=== PATIENT | female | born 1935 | race Caucasian/White ===

== ENCOUNTER 2021-02-23 23:35 | Inpatient (IN) | payer MEDICARE, MEDICAID ==
[~2021-02-23] VITALS: Ht 162.6 cm; Wt 55.0 kg
[~2021-02-23 23:35] MED LIST: LOSA25TA96 PO; metoprolol PO
[2021-02-24 00:36] LABS: BASOPHILS % (AUTO) 0.6 % (0-1); EOSINOPHILS % (AUTO) 0.6 % (0-6); HEMATOCRIT 40.3 % (35.0-45.0); HEMOGLOBIN 14.2 g/dl (12.0-16.0); LYMPHOCYTES # (AUTO) 1.3 X10'3 (1.1-4.8); MEAN CORPUSCULAR HEMOGLOBIN 32.3 PG (27.0-31.0); MEAN CORPUSCULAR HGB CONC 35.2 g/dL (33.0-36.5); MEAN CORPUSCULAR VOLUME 91.9 FL (78-98); MEAN PLATELET VOLUME 7.7 FL (7.4-10.4); MONOCYTES # (AUTO) 0.3 X10'3 (0-0.9); MONOCYTES % (AUTO) 4.8 % (2-12); NEUTROPHILS # (AUTO) 5.3 X10'3 (1.8-7.7); PLATELET COUNT 200 X10'3 (140-440); RED BLOOD COUNT 4.39 X10'6 (4.20-5.60); RED CELL DISTRIBUTION WIDTH 13.2 % (11.5-14.5); WHITE BLOOD COUNT 7.1 X10'3 (4.5-11.0)
[2021-02-24 00:47] LABS: ALANINE AMINOTRANSFERASE 17 U/L (12-78); ALBUMIN 3.5 G/DL (3.4-5.0); ALKALINE PHOSPHATASE 111 IU/L (46-116); ANION GAP 8 (8-16); ASPARTATE AMINO TRANSFERASE 15 U/L (10-37); BILIRUBIN,TOTAL 0.4 MG/DL (0.1-1.0); BLOOD UREA NITROGEN 17 MG/DL (7-18); CALCIUM 9.1 MG/DL (8.5-10.1); CHLORIDE 107 MMOL/L (99-107); GLUCOSE 123 MG/DL (70-104); POTASSIUM 3.8 MMOL/L (3.5-5.1); SODIUM 144 MMOL/L (135-145); TOTAL CARBON DIOXIDE 29.5 MMOL/L (24-32); TOTAL PROTEIN 6.9 G/DL (6.4-8.2); eGFR 53 ML/MIN
[2021-02-24 00:51] LABS: BILIRUBIN,DIRECT 0.1 MG/DL (0-0.3); LIPASE 116 U/L (73-393); TROPONIN I < 0.04 NG/ML (0.0-0.05)
[2021-02-24 02:03] LABS: CLARITY,URINE CLOUDY (Clear); COLOR,URINE YELLOW (Yellow); GLUCOSE, URINE NEGATIVE (Neg); KETONES,URINE NEGATIVE (Neg); LEUKOCYTE ESTERASE ,URINE LARGE (Neg); NITRITES, URINE POSITIVE (Neg); OCCULT BLOOD,URINE TRACE-LYSED (Neg); PROTEIN,URINE NEGATIVE (Neg); UA COLLECTION TYPE STRAIGHT CATH; UROBILINOGEN,URINE 0.2 E.U/dL (0.2-1.0)
[2021-02-24 02:25] LABS: BACTERIA,URINE 4+ /HPF (Neg); SQUAMOUS EPITHELIAL CELL,UR FEW /LPF (FEW); WBC CLUMPS,URINE MODERATE /HPF (NEGATIVE); WBC,URINE TNTC /HPF (0-4)
[2021-02-24] MEDS ORDERED: CefTRIAXone/D5W-Rocephin 1gm 50 ML IV ONE (03:05)
[2021-02-24] MEDS ORDERED: ondansetron/PF 4mg/2ml inj IV PRN (03:10)
[2021-02-24] MEDS ORDERED: magnesium hydroxide 30ml (MOM) UD suspension PO PRN (03:10)
[2021-02-24] MEDS ORDERED: acetaminophen 325mg tablet PO PRN (03:10)
[2021-02-24] MEDS ORDERED: mag hydrox/Alum hydrox/simeth 30ml oral suspension PO PRN (03:10)
[2021-02-24] MEDS ORDERED: MEMA5TAB42 PO (04:03)
[2021-02-24] MEDS ORDERED: QUET50TA24 PO (04:04)
[2021-02-24] MEDS ORDERED: METO25TA6 PO (04:04)
[2021-02-24] MEDS ORDERED: SULF1TAB45 PO (04:05)
[2021-02-24] MEDS ORDERED: metoprolol succinate 25mg (24-HOUR) SR. Tablet PO SCH (08:00)
[2021-02-24] MEDS: heparin, porcine 5000 units/ml vial SQ SCH ×2 (10:33→20:10)
[2021-02-24] MEDS: docusate sod 100mg capsule PO SCH ×2 (10:33→20:09)
--- NOTE | 2021-02-24 17:02 | NUR ---
Pt. placed back in bed after fall. Bed alarm cord shortened to allow earlier alarm if pt. attempts to climb out of bed again.
[2021-02-24] MEDS: memantine 5mg tablet PO SCH (20:09)
[2021-02-24] MEDS: QUEtiapine 25mg tablet PO SCH (20:09)
--- NOTE | 2021-02-24 20:20 | NUR ---
CHANGED PT BRIEF, SOILED W URINE, PT IN POSITION OF COMFORT, SITTER AT BEDSIDE. NO NEEDS AT THIS TIME
[2021-02-25 01:40] LABS: BASOPHILS % (AUTO) 0.6 % (0-1); EOSINOPHILS # (AUTO) 0.1 X10'3 (0-0.9); EOSINOPHILS % (AUTO) 0.8 % (0-6); HEMOGLOBIN 13.9 g/dl (12.0-16.0); LYMPHOCYTES # (AUTO) 2.1 X10'3 (1.1-4.8); LYMPHOCYTES % (AUTO) 30.9 % (21-51); MEAN CORPUSCULAR HGB CONC 34.8 g/dL (33.0-36.5); MEAN CORPUSCULAR VOLUME 92.1 FL (78-98); MEAN PLATELET VOLUME 7.8 FL (7.4-10.4); MONOCYTES # (AUTO) 0.4 X10'3 (0-0.9); MONOCYTES % (AUTO) 6.3 % (2-12); NEUTROPHILS # (AUTO) 4.1 X10'3 (1.8-7.7); NEUTROPHILS % (AUTO) 61.4 % (42-75); PLATELET COUNT 201 X10'3 (140-440); RED BLOOD COUNT 4.34 X10'6 (4.20-5.60); WHITE BLOOD COUNT 6.7 X10'3 (4.5-11.0)
[2021-02-25 01:56] LABS: ALANINE AMINOTRANSFERASE 19 U/L (12-78); ALBUMIN 3.4 G/DL (3.4-5.0); ALKALINE PHOSPHATASE 106 IU/L (46-116); ANION GAP 5 (8-16); ASPARTATE AMINO TRANSFERASE 21 U/L (10-37); BILIRUBIN,TOTAL 0.6 MG/DL (0.1-1.0); BLOOD UREA NITROGEN 15 MG/DL (7-18); BUN/CREATININE RATIO 14.2 (6.6-38.0); CALCIUM 8.9 MG/DL (8.5-10.1); CHLORIDE 107 MMOL/L (99-107); CREATININE 1.06 MG/DL (0.40-0.90); GLUCOSE 107 MG/DL (70-104); POTASSIUM 3.5 MMOL/L (3.5-5.1); SODIUM 142 MMOL/L (135-145); TOTAL CARBON DIOXIDE 30.3 MMOL/L (24-32); TOTAL PROTEIN 6.8 G/DL (6.4-8.2); eGFR 49 ML/MIN
[2021-02-25] MEDS ORDERED: CefTRIAXone/D5W-Rocephin 1gm 50 ML IV SCH (08:00)
[2021-02-25] MEDS ORDERED: metoprolol tartrate 25mg tablet PO SCH (08:00)
--- NOTE | 2021-02-25 09:49 | NUR ---
BEATA [phone]
[2021-02-25] MEDS ORDERED: CEFD300C3 PO (09:53)
--- NOTE | 2021-02-25 09:53 | NUR ---
CALL FROM DR DELGADO STATING HE IS GOING TO DC PT. CALLED PTS MSG LEFT
[2021-02-25] MEDS: memantine 5mg tablet PO SCH (10:39)
[2021-02-25] MEDS: docusate sod 100mg capsule PO SCH (10:40)
[2021-02-25] MEDS: QUEtiapine 25mg tablet PO SCH (10:40)
[2021-02-25] MEDS: heparin, porcine 5000 units/ml vial SQ SCH (10:41)
[2021-02-25 10:42] VITALS: BP 159/82
--- NOTE | 2021-02-25 11:02 | NUR ---
DR DELGADO IN TO SEE PT. PT READY FOR DC. AM MEDS GIVEN, BRIEF CHANGED LARGE AMT URINE. PT TO WELL. BED ALARM ON.
--- NOTE | 2021-02-25 11:09 | NUR ---
attempted to call pts again. no answer msg left
--- NOTE | 2021-02-25 11:12 | NUR ---
CALLED BACK INFORMED HIM PT WILL BE READY FOR DC IN ABOUT 30 MIN. STATES HE WILL BE HERE AROUND 1200
--- NOTE | 2021-02-25 12:37 | NUR ---
ASSISTED GETTING PT TO A WC AND OUT TO THE CAR. PT WAS MOD ASSIST TO WC FROM BED. ONCE OUT TO THE CAR PT FULL ASSIST INTO CAR. PT BECAME WT WHILE IN THE PROCESS OF TRANSFER. ABLE TO GET PT IN CAR. ASKED IF THIS IS HER BASELINE HE STATES SHE DOES THIS SOMETIMES. HE STATES HE FEELS SHE WILL BE ABLE TO ASSIST HIM TO GET HER OUT OF THE CAR WHEN THEY GET HOME. HE STATES SHE IS MORE RECEPTIVE TO HIM AND HE WILL BE ABLE TO TALK WITH HER ON THE WAY HOME. STATES HE CAN GET HELP FROM THE NEIGHBORS IF HE NEEDS IT. INFORMED HIM IF HE HAS ANY PROBLEMS TO RETURN BACK HERE. HE STATES UNDERSTANDING
[2021-02-25] MEDS ORDERED: lactobacillus rhamnosus 10,000 MMU CELLS/CAPSULE PO SCH (20:00)
== END 2021-02-25 12:40 | disposition home health service (06) | DRG 689 ==
LOC: ER 23:36 → UNDOADMIN 02-24 03:09 → ED HOLD 02-24 03:09 → UNDOADMIN 02-24 03:11 → ED HOLD 02-24 03:11 → UNDODISIN 02-26 17:03
PROVIDERS: ADMIT Internal Medicine; ATTEND Family Medicine
DX: N30.01 Acute cystitis with hematuria (principal); G93.41 Metabolic encephalopathy; I10 Essential (primary) hypertension; W18.39XA Other fall on same level, initial encounter; Z96.653 Presence of artificial knee joint, bilateral; G30.9 Alzheimer's disease, unspecified; F02.80 Dementia in other diseases classified elsewhere, unspecified severity, without behavioral disturbance, psychotic disturbance, mood disturbance, and anxiety; Z86.73 Personal history of transient ischemic attack (TIA), and cerebral infarction without residual deficits; Z90.49 Acquired absence of other specified parts of digestive tract; Z90.710 Acquired absence of both cervix and uterus; Y93.89 Activity, other specified; Z79.899 Other long term (current) drug therapy; Y92.098 Other place in other non-institutional residence as the place of occurrence of the external cause; Y99.8 Other external cause status
CPT/HCPCS: 36415; 70450; 71045; 72125; 80048; 80053; 80076; 81001; 83605; 83690; 84484; 85025; 87040; 99285; G0378; J0696; J1644

== ENCOUNTER 2021-02-25 17:57 | Inpatient (IN) | payer MEDICARE, MEDICAID ==
[~2021-02-25] VITALS: Ht 162.6 cm; Wt 55.0 kg
[~2021-02-25 17:57] MED LIST changes: +CEFD300C3 PO; +MEMA5TAB42 PO; +METO25TA6 PO; +QUET50TA24 PO; +SULF1TAB45 PO
[2021-02-25] MEDS ORDERED: CefTRIAXone/D5W-Rocephin 1gm 50 ML IV ONE (20:50)
[2021-02-25 20:54] LABS: BASOPHILS % (AUTO) 0.7 % (0-1); EOSINOPHILS % (AUTO) 0.5 % (0-6); HEMATOCRIT 38.1 % (35.0-45.0); HEMOGLOBIN 13.2 g/dl (12.0-16.0); LYMPHOCYTES # (AUTO) 1.3 X10'3 (1.1-4.8); MEAN CORPUSCULAR HEMOGLOBIN 32.1 PG (27.0-31.0); MEAN CORPUSCULAR HGB CONC 34.8 g/dL (33.0-36.5); MEAN CORPUSCULAR VOLUME 92.2 FL (78-98); MEAN PLATELET VOLUME 8.7 FL (7.4-10.4); MONOCYTES # (AUTO) 0.3 X10'3 (0-0.9); MONOCYTES % (AUTO) 5.3 % (2-12); NEUTROPHILS # (AUTO) 4.4 X10'3 (1.8-7.7); NEUTROPHILS % (AUTO) 71.5 % (42-75); PLATELET COUNT 212 X10'3 (140-440); RED BLOOD COUNT 4.13 X10'6 (4.20-5.60); WHITE BLOOD COUNT 6.1 X10'3 (4.5-11.0)
[2021-02-25 21:04] LABS: ALANINE AMINOTRANSFERASE 19 U/L (12-78); ALBUMIN 3.4 G/DL (3.4-5.0); ALKALINE PHOSPHATASE 104 IU/L (46-116); ANION GAP 9 (8-16); ASPARTATE AMINO TRANSFERASE 19 U/L (10-37); BILIRUBIN,TOTAL 0.7 MG/DL (0.1-1.0); BLOOD UREA NITROGEN 17 MG/DL (7-18); BUN/CREATININE RATIO 13.7 (6.6-38.0); CALCIUM 8.5 MG/DL (8.5-10.1); CHLORIDE 103 MMOL/L (99-107); CREATININE 1.24 MG/DL (0.40-0.90); GLUCOSE 117 MG/DL (70-104); POTASSIUM 3.8 MMOL/L (3.5-5.1); SODIUM 137 MMOL/L (135-145); TOTAL CARBON DIOXIDE 25.2 MMOL/L (24-32); TOTAL PROTEIN 6.7 G/DL (6.4-8.2); eGFR 41 ML/MIN
[2021-02-25] MEDS ORDERED: mag hydrox/Alum hydrox/simeth 30ml oral suspension PO PRN (21:20)
[2021-02-25] MEDS ORDERED: ondansetron/PF 4mg/2ml inj IV PRN (21:20)
[2021-02-25] MEDS ORDERED: magnesium hydroxide 30ml (MOM) UD suspension PO PRN (21:20)
[2021-02-25] MEDS ORDERED: acetaminophen 325mg tablet PO PRN (21:20)
[2021-02-25] MEDS: prazosin 1mg capsule PO SCH (21:36)
--- NOTE | 2021-02-25 23:25 | NUR ---
PT INCONTINENT OF URINE, CHANGED AND REPOSITION, TOLERATED WELL
[2021-02-26 04:23] LABS: ALANINE AMINOTRANSFERASE 19 U/L (12-78); ALBUMIN 3.3 G/DL (3.4-5.0); ALBUMIN/GLOBULIN RATIO 0.9 (1.1-1.5); ALKALINE PHOSPHATASE 102 IU/L (46-116); ANION GAP 8 (8-16); ASPARTATE AMINO TRANSFERASE 29 U/L (10-37); BILIRUBIN,TOTAL 0.7 MG/DL (0.1-1.0); BLOOD UREA NITROGEN 18 MG/DL (7-18); BUN/CREATININE RATIO 15.3 (6.6-38.0); CALCIUM 8.7 MG/DL (8.5-10.1); CHLORIDE 108 MMOL/L (99-107); CREATININE 1.18 MG/DL (0.40-0.90); GLUCOSE 91 MG/DL (70-104); POTASSIUM 3.9 MMOL/L (3.5-5.1); SODIUM 144 MMOL/L (135-145); TOTAL CARBON DIOXIDE 27.9 MMOL/L (24-32); TOTAL PROTEIN 6.9 G/DL (6.4-8.2); eGFR 43 ML/MIN
[2021-02-26 04:31] LABS: BASOPHILS % (AUTO) 0.5 % (0-1); EOSINOPHILS # (AUTO) 0.1 X10'3 (0-0.9); EOSINOPHILS % (AUTO) 1.1 % (0-6); HEMATOCRIT 41.9 % (35.0-45.0); LYMPHOCYTES # (AUTO) 2.3 X10'3 (1.1-4.8); LYMPHOCYTES % (AUTO) 39.6 % (21-51); MEAN CORPUSCULAR HEMOGLOBIN 31.5 PG (27.0-31.0); MEAN CORPUSCULAR HGB CONC 33.5 g/dL (33.0-36.5); MEAN CORPUSCULAR VOLUME 94.2 FL (78-98); MEAN PLATELET VOLUME 8.2 FL (7.4-10.4); MONOCYTES # (AUTO) 0.5 X10'3 (0-0.9); MONOCYTES % (AUTO) 8.7 % (2-12); NEUTROPHILS # (AUTO) 2.9 X10'3 (1.8-7.7); NEUTROPHILS % (AUTO) 50.1 % (42-75); PLATELET COUNT 188 X10'3 (140-440); RED BLOOD COUNT 4.45 X10'6 (4.20-5.60); RED CELL DISTRIBUTION WIDTH 13.5 % (11.5-14.5); WHITE BLOOD COUNT 5.8 X10'3 (4.5-11.0)
[2021-02-26] MEDS ORDERED: QUEtiapine 25mg tablet PO SCH (08:00)
[2021-02-26] MEDS ORDERED: metoprolol tartrate 25mg tablet PO SCH (08:00)
[2021-02-26] MEDS ORDERED: docusate sod 100mg capsule PO SCH (08:00)
[2021-02-26] MEDS ORDERED: memantine 5mg tablet PO SCH (08:00)
[2021-02-26] MEDS ORDERED: heparin, porcine 5000 units/ml vial SQ SCH (08:00)
[2021-02-26] MEDS ORDERED: cefpodoxime proxetil 100mg tablet PO SCH (08:30)
--- NOTE | 2021-02-26 09:50 | NUR ---
Spoke to pt's /POA. States that he is able to care for pt at home and would like her to return there. States that hew is currently working with [facility] to have caregiver's come to home for addtional help.
[2021-02-26] MEDS: prazosin 1mg capsule PO SCH (09:57)
--- NOTE | 2021-02-26 10:42 | NUR ---
Spoke to Case Management. They will contact [employer] to followup regarding possible [facility].
--- NOTE | 2021-02-26 11:32 | NUR ---
Per hospitalist, SS consulted and will be following up with [facility].
[2021-02-26 14:12] VITALS: BP 98/72
[2021-02-26] MEDS ORDERED: lactobacillus rhamnosus 10,000 MMU CELLS/CAPSULE PO SCH (20:00)
== END 2021-02-26 17:04 | disposition home health service (06) | DRG 71 ==
LOC: ER 17:58 → ED HOLD 21:29
PROVIDERS: ADMIT Internal Medicine; ATTEND Internal Medicine
DX: G93.41 Metabolic encephalopathy (principal); N39.0 Urinary tract infection, site not specified; F03.90 Unspecified dementia, unspecified severity, without behavioral disturbance, psychotic disturbance, mood disturbance, and anxiety; I10 Essential (primary) hypertension; Z86.73 Personal history of transient ischemic attack (TIA), and cerebral infarction without residual deficits; Z90.49 Acquired absence of other specified parts of digestive tract; Z90.710 Acquired absence of both cervix and uterus; Z79.899 Other long term (current) drug therapy
CPT/HCPCS: 36415; 80053; 83605; 85025; 87081; 96374; 99285; G0378; J0696; J1644

== ENCOUNTER 2021-04-15 23:36 | Emergency (ER) | payer MEDICARE, MEDICAID ==
[~2021-04-15] VITALS: Ht 160 cm; Wt 54.5 kg
[~2021-04-15 23:36] MED LIST changes: -CEFD300C3 PO; -LOSA25TA96 PO; -SULF1TAB45 PO; -metoprolol PO
[2021-04-15 23:42] VITALS: BP 168/84
[2021-04-16 00:35] LABS: BASOPHILS % (AUTO) 0.3 % (0-1); EOSINOPHILS % (AUTO) 0.6 % (0-6); HEMATOCRIT 40.8 % (35.0-45.0); HEMOGLOBIN 14.4 g/dl (12.0-16.0); LYMPHOCYTES # (AUTO) 1.6 X10'3 (1.1-4.8); LYMPHOCYTES % (AUTO) 22.6 % (21-51); MEAN CORPUSCULAR HEMOGLOBIN 31.9 PG (27.0-31.0); MEAN CORPUSCULAR HGB CONC 35.2 g/dL (33.0-36.5); MEAN CORPUSCULAR VOLUME 90.8 FL (78-98); MEAN PLATELET VOLUME 7.7 FL (7.4-10.4); MONOCYTES # (AUTO) 0.5 X10'3 (0-0.9); MONOCYTES % (AUTO) 6.7 % (2-12); NEUTROPHILS # (AUTO) 5.1 X10'3 (1.8-7.7); NEUTROPHILS % (AUTO) 69.8 % (42-75); PLATELET COUNT 223 X10'3 (140-440); RED BLOOD COUNT 4.49 X10'6 (4.20-5.60); RED CELL DISTRIBUTION WIDTH 13.2 % (11.5-14.5); WHITE BLOOD COUNT 7.2 X10'3 (4.5-11.0)
[2021-04-16 00:41] LABS: ALBUMIN 3.8 G/DL (3.4-5.0); ANION GAP 10 (8-16); BLOOD UREA NITROGEN 14 MG/DL (7-18); BUN/CREATININE RATIO 14.9 (6.6-38.0); CALCIUM 9.1 MG/DL (8.5-10.1); CHLORIDE 107 MMOL/L (99-107); CREATININE 0.94 MG/DL (0.40-0.90); GLUCOSE 125 MG/DL (70-104); POTASSIUM 3.7 MMOL/L (3.5-5.1); SODIUM 145 MMOL/L (135-145); TOTAL CARBON DIOXIDE 27.7 MMOL/L (24-32); eGFR 56 ML/MIN
[2021-04-16 01:15] LABS: COLOR,URINE YELLOW (Yellow); UA COLLECTION TYPE FOLEY CATH
[2021-04-16 01:16] LABS: CLARITY,URINE SLIGHTLY CLOUDY (Clear); GLUCOSE, URINE NEGATIVE (Neg); KETONES,URINE 15 mg/dl (Neg); NITRITES, URINE POSITIVE (Neg); OCCULT BLOOD,URINE SMALL (Neg); PROTEIN,URINE TRACE mg/dl (Neg); UROBILINOGEN,URINE 0.2 E.U/dL (0.2-1.0)
[2021-04-16 01:17] LABS: LEUKOCYTE ESTERASE ,URINE MODERATE (Neg)
[2021-04-16 01:19] LABS: BACTERIA,URINE 4+ /HPF (Neg); SQUAMOUS EPITHELIAL CELL,UR FEW /LPF (FEW); WBC,URINE 50-100 /HPF (0-4)
[2021-04-16 01:20] LABS: MUCUS STRANDS FEW /LPF (Neg); WBC CLUMPS,URINE FEW /HPF (NEGATIVE)
[2021-04-16] MEDS ORDERED: CEFD300C3 PO ×2 (01:30)
[2021-04-30] MEDS ORDERED: TEMA15CA5 PO (13:02)
[2021-04-30] MEDS ORDERED: QUET25TA36 PO ×2 (13:02→13:22)
[2021-04-30] MEDS ORDERED: LOSA50TA64 PO (13:02)
== END 2021-04-16 03:14 | disposition home or self-care (01) ==
LOC: ER 23:38
DX: S09.90XA Unspecified injury of head, initial encounter (principal); N39.0 Urinary tract infection, site not specified; F03.90 Unspecified dementia, unspecified severity, without behavioral disturbance, psychotic disturbance, mood disturbance, and anxiety; I10 Essential (primary) hypertension; Z86.73 Personal history of transient ischemic attack (TIA), and cerebral infarction without residual deficits; Z90.89 Acquired absence of other organs; Z90.49 Acquired absence of other specified parts of digestive tract; Z90.710 Acquired absence of both cervix and uterus; Z98.890 Other specified postprocedural states; Z79.2 Long term (current) use of antibiotics; W19.XXXA Unspecified fall, initial encounter; Y93.89 Activity, other specified; Y92.89 Other specified places as the place of occurrence of the external cause; Y99.8 Other external cause status
CPT/HCPCS: 36415; 70450; 72125; 80048; 81001; 85025; 87077; 87088; 87186; 93005; 99285

== ENCOUNTER 2021-04-17 16:49 | Emergency (ER) | payer MEDICARE, MEDICAID ==
[~2021-04-17] VITALS: Ht 160 cm; Wt 54.5 kg
[~2021-04-17 16:49] MED LIST changes: +CEFD300C3 PO
[2021-04-17 17:38] LABS: BASOPHILS # (AUTO) 0.1 X10'3 (0-0.2); BASOPHILS % (AUTO) 0.9 % (0-1); EOSINOPHILS # (AUTO) 0.1 X10'3 (0-0.9); EOSINOPHILS % (AUTO) 0.9 % (0-6); HEMOGLOBIN 14.4 g/dl (12.0-16.0); LYMPHOCYTES % (AUTO) 30.1 % (21-51); MEAN CORPUSCULAR HEMOGLOBIN 31.9 PG (27.0-31.0); MEAN CORPUSCULAR HGB CONC 35.1 g/dL (33.0-36.5); MEAN PLATELET VOLUME 7.7 FL (7.4-10.4); MONOCYTES # (AUTO) 0.5 X10'3 (0-0.9); MONOCYTES % (AUTO) 7.7 % (2-12); NEUTROPHILS # (AUTO) 3.9 X10'3 (1.8-7.7); NEUTROPHILS % (AUTO) 60.4 % (42-75); PLATELET COUNT 237 X10'3 (140-440); RED BLOOD COUNT 4.51 X10'6 (4.20-5.60); RED CELL DISTRIBUTION WIDTH 13.6 % (11.5-14.5); WHITE BLOOD COUNT 6.5 X10'3 (4.5-11.0)
[2021-04-17 17:47] LABS: ALANINE AMINOTRANSFERASE 21 U/L (12-78); ALBUMIN 3.6 G/DL (3.4-5.0); ALBUMIN/GLOBULIN RATIO 1.1 (1.1-1.5); ALKALINE PHOSPHATASE 100 IU/L (46-116); ANION GAP 8 (8-16); ASPARTATE AMINO TRANSFERASE 17 U/L (10-37); BILIRUBIN,TOTAL 1.1 MG/DL (0.1-1.0); BLOOD UREA NITROGEN 14 MG/DL (7-18); BUN/CREATININE RATIO 14.6 (6.6-38.0); CALCIUM 8.8 MG/DL (8.5-10.1); CHLORIDE 108 MMOL/L (99-107); CREATININE 0.96 MG/DL (0.40-0.90); GLUCOSE 122 MG/DL (70-104); POTASSIUM 4.2 MMOL/L (3.5-5.1); SODIUM 146 MMOL/L (135-145); TOTAL CARBON DIOXIDE 29.6 MMOL/L (24-32); eGFR 55 ML/MIN
[2021-04-17 18:10] VITALS: BP 134/87
[2021-04-17 18:39] LABS: CLARITY,URINE CLOUDY (Clear); COLOR,URINE YELLOW (Yellow); GLUCOSE, URINE NEGATIVE (Neg); KETONES,URINE TRACE mg/dl (Neg); PH,URINE 5.5 (4.8-8.0); PROTEIN,URINE 30 mg/dl (Neg); UA COLLECTION TYPE STRAIGHT CATH
[2021-04-17 18:40] LABS: LEUKOCYTE ESTERASE ,URINE MODERATE (Neg); NITRITES, URINE POSITIVE (Neg); OCCULT BLOOD,URINE MODERATE (Neg); UROBILINOGEN,URINE 0.2 E.U/dL (0.2-1.0)
[2021-04-17 19:03] LABS: BACTERIA,URINE 3+ /HPF (Neg); MUCUS STRANDS FEW /LPF (Neg); SQUAMOUS EPITHELIAL CELL,UR FEW /LPF (FEW); WBC,URINE TNTC /HPF (0-4)
== END 2021-04-17 19:41 | disposition home or self-care (01) ==
LOC: ER 16:49
DX: M25.512 Pain in left shoulder (principal); N39.0 Urinary tract infection, site not specified; F03.91 Unspecified dementia, unspecified severity, with behavioral disturbance; I10 Essential (primary) hypertension; Z86.73 Personal history of transient ischemic attack (TIA), and cerebral infarction without residual deficits; Z90.49 Acquired absence of other specified parts of digestive tract; Z98.890 Other specified postprocedural states; Z90.710 Acquired absence of both cervix and uterus; W19.XXXA Unspecified fall, initial encounter; Y93.89 Activity, other specified; Y92.89 Other specified places as the place of occurrence of the external cause; Y99.8 Other external cause status
CPT/HCPCS: 36415; 70450; 71045; 73030; 80053; 81001; 85025; 87077; 87088; 87186; 93005; 99285

== ENCOUNTER 2021-06-21 13:20 | Emergency (ER) | payer MEDICARE, MEDICAID ==
[~2021-06-21] VITALS: Ht 165.1 cm; Wt 48.0 kg
[~2021-06-21 13:20] MED LIST changes: -CEFD300C3 PO; +LOSA50TA64 PO; +QUET25TA36 PO; -QUET50TA24 PO
[2021-06-21 13:30] VITALS: BP 130/66
[2021-06-21 15:17] LABS: BASOPHILS % (AUTO) 0.7 % (0-1); EOSINOPHILS % (AUTO) 0.5 % (0-6); HEMATOCRIT 40.4 % (35.0-45.0); HEMOGLOBIN 13.9 g/dl (12.0-16.0); LYMPHOCYTES # (AUTO) 2.1 X10'3 (1.1-4.8); LYMPHOCYTES % (AUTO) 35.7 % (21-51); MEAN CORPUSCULAR HEMOGLOBIN 31.9 PG (27.0-31.0); MEAN CORPUSCULAR HGB CONC 34.4 g/dL (33.0-36.5); MEAN CORPUSCULAR VOLUME 92.7 FL (78-98); MEAN PLATELET VOLUME 7.6 FL (7.4-10.4); MONOCYTES # (AUTO) 0.3 X10'3 (0-0.9); MONOCYTES % (AUTO) 5.7 % (2-12); NEUTROPHILS # (AUTO) 3.3 X10'3 (1.8-7.7); NEUTROPHILS % (AUTO) 57.4 % (42-75); PLATELET COUNT 237 X10'3 (140-440); RED BLOOD COUNT 4.36 X10'6 (4.20-5.60); RED CELL DISTRIBUTION WIDTH 13.8 % (11.5-14.5); WHITE BLOOD COUNT 5.8 X10'3 (4.5-11.0)
[2021-06-21 15:31] LABS: ALANINE AMINOTRANSFERASE 21 U/L (12-78); ALBUMIN 3.6 G/DL (3.4-5.0); ALBUMIN/GLOBULIN RATIO 1.1 (1.1-1.5); ALKALINE PHOSPHATASE 93 IU/L (46-116); ANION GAP 4 (8-16); ASPARTATE AMINO TRANSFERASE 22 U/L (10-37); BILIRUBIN,TOTAL 0.8 MG/DL (0.1-1.0); BLOOD UREA NITROGEN 16 MG/DL (7-18); CALCIUM 9.1 MG/DL (8.5-10.1); CHLORIDE 107 MMOL/L (99-107); CREATININE 0.94 MG/DL (0.40-0.90); GLUCOSE 114 MG/DL (70-104); POTASSIUM 4.5 MMOL/L (3.5-5.1); SODIUM 141 MMOL/L (135-145); TOTAL CARBON DIOXIDE 30.2 MMOL/L (24-32); eGFR 56 ML/MIN
[2021-06-21 17:20] LABS: MAGNESIUM 2.3 MG/DL (1.5-2.4)
[2021-06-21] MEDS ORDERED: NITR100C6 PO (19:28)
== END 2021-06-21 19:50 | disposition home or self-care (01) ==
LOC: ER 13:20
DX: R55 Syncope and collapse (principal); F03.91 Unspecified dementia, unspecified severity, with behavioral disturbance; I10 Essential (primary) hypertension; Z87.440 Personal history of urinary (tract) infections; Z86.73 Personal history of transient ischemic attack (TIA), and cerebral infarction without residual deficits; Z90.49 Acquired absence of other specified parts of digestive tract; Z90.710 Acquired absence of both cervix and uterus; Z79.899 Other long term (current) drug therapy
CPT/HCPCS: 36415; 70450; 71045; 80053; 83735; 84484; 85025; 93005; 99285

== ENCOUNTER 2021-10-24 05:08 | Inpatient (IN) | payer MEDICARE, MEDICAID ==
[~2021-10-24] VITALS: Ht 162.6 cm; Wt 68.2 kg
[~2021-10-24 05:08] MED LIST changes: +NITR100C6 PO
[2021-10-24 06:36] LABS: BASOPHILS % (AUTO) 0.5 % (0-1); EOSINOPHILS % (AUTO) 0.6 % (0-6); HEMATOCRIT 38.7 % (35.0-45.0); LYMPHOCYTES # (AUTO) 2.2 X10'3 (1.1-4.8); LYMPHOCYTES % (AUTO) 37.8 % (21-51); MEAN CORPUSCULAR HEMOGLOBIN 30.7 PG (27.0-31.0); MEAN CORPUSCULAR HGB CONC 33.6 g/dL (33.0-36.5); MEAN CORPUSCULAR VOLUME 91.4 FL (78-98); MEAN PLATELET VOLUME 7.7 FL (7.4-10.4); MONOCYTES # (AUTO) 0.4 X10'3 (0-0.9); NEUTROPHILS # (AUTO) 3.1 X10'3 (1.8-7.7); NEUTROPHILS % (AUTO) 54.1 % (42-75); PLATELET COUNT 247 X10'3 (140-440); RED BLOOD COUNT 4.24 X10'6 (4.20-5.60); RED CELL DISTRIBUTION WIDTH 13.6 % (11.5-14.5); WHITE BLOOD COUNT 5.7 X10'3 (4.5-11.0)
[2021-10-24 06:38] LABS: CLARITY,URINE SLIGHTLY CLOUDY (Clear); COLOR,URINE YELLOW (Yellow); GLUCOSE, URINE NEGATIVE (Neg); KETONES,URINE NEGATIVE (Neg); LEUKOCYTE ESTERASE ,URINE NEGATIVE (Neg); NITRITES, URINE NEGATIVE (Neg); OCCULT BLOOD,URINE NEGATIVE (Neg); PROTEIN,URINE NEGATIVE (Neg); UROBILINOGEN,URINE 0.2 E.U/dL (0.2-1.0)
[2021-10-24 06:39] LABS: ALANINE AMINOTRANSFERASE 14 U/L (12-78); ALBUMIN 3.4 G/DL (3.4-5.0); ALKALINE PHOSPHATASE 97 IU/L (46-116); ANION GAP 8 (8-16); ASPARTATE AMINO TRANSFERASE 19 U/L (10-37); BILIRUBIN,TOTAL 0.4 MG/DL (0.1-1.0); BLOOD UREA NITROGEN 15 MG/DL (7-18); BUN/CREATININE RATIO 18.8 (6.6-38.0); CALCIUM 8.8 MG/DL (8.5-10.1); CHLORIDE 106 MMOL/L (99-107); GLUCOSE 87 MG/DL (70-104); POTASSIUM 3.8 MMOL/L (3.5-5.1); SODIUM 142 MMOL/L (135-145); TOTAL CARBON DIOXIDE 28.4 MMOL/L (24-32); TOTAL PROTEIN 6.7 G/DL (6.4-8.2); eGFR 68 ML/MIN
[2021-10-24 06:40] LABS: UA COLLECTION TYPE CLN CATCH MIDSTREAM
[2021-10-24 06:49] LABS: MUCUS STRANDS MODERATE /LPF (Neg); SQUAMOUS EPITHELIAL CELL,UR MODERATE /LPF (FEW)
[2021-10-24 06:52] LABS: BACTERIA,URINE 2+ /HPF (Neg); RBC,URINE NONE SEEN /HPF (0-2)
--- NOTE | 2021-10-24 07:30 | NUR ---
Pt to/from CT without incident.
--- NOTE | 2021-10-24 07:47 | NUR ---
Lab at bedside.
[2021-10-24] MEDS ORDERED: potassium CL 10mEq/100ml bag 100 ML IV PRN (11:05)
[2021-10-24] MEDS ORDERED: ondansetron/PF 4mg/2ml inj IV PRN (11:05)
[2021-10-24] MEDS ORDERED: magnesium 2GM in 50ml NS 50 ML IV PRN (11:05)
[2021-10-24] MEDS ORDERED: POTASSIUM BICARB 20meq eff tab 20 MEQ TABLET.EFF PO PRN ×2 (11:05)
[2021-10-24] MEDS ORDERED: magnesium 4gm in 100ml NS 100 ML IV PRN (11:05)
[2021-10-24] MEDS ORDERED: acetaminophen 325mg tablet PO PRN (11:05)
[2021-10-24] MEDS ORDERED: ondansetron 4mg rapidly disintigrating tab PO PRN (11:05)
[2021-10-24] MEDS ORDERED: magnesium Cl slow-release 64mg tablet PO PRN (11:05)
[2021-10-24 12:08] LABS: MAGNESIUM 2.1 MG/DL (1.5-2.4); POTASSIUM 3.8 MMOL/L (3.5-5.1)
[2021-10-24] MEDS: normal saline 1000ml 1,000 ML IV SCH ×2 (12:30→19:24)
--- NOTE | 2021-10-24 14:14 | NUR ---
telephone report to cornel kincaid
[2021-10-24 15:00] VITALS: BP 166/84
[2021-10-24] MEDS: cefTRIAXone 1g/NS 100ml IVPB 100 ML IV SCH (16:30)
--- NOTE | 2021-10-24 17:33 | NUR ---
Alberto carson. Addendum: 10/24/21 at 1734 by Radha Hurtado RN Amended: Links added.
[2021-10-24 18:00] VITALS: BP 143/65
--- NOTE | 2021-10-24 19:05 | NUR ---
Report given to Carmen GRIFFITH. All questions answered. Arvind just left room after helping patient with dinner. Patient is back to sleep, resting comfortably
[2021-10-24] MEDS: heparin, porcine 5000 units/ml vial SQ SCH (19:23)
[2021-10-24] MEDS: K and/or MAG REPLACEMENT MC SCH (19:23)
[2021-10-24 20:00] VITALS: BP 168/89
[2021-10-24 20:05] VITALS: BP 165/96
[2021-10-24 22:00] VITALS: BP 165/89
[2021-10-25] VITALS (7 sets, daily range): BP systolic 132–183; BP diastolic 62–94
[2021-10-25] MEDS: normal saline 1000ml 1,000 ML IV SCH ×3 (02:32→21:40)
[2021-10-25 07:05] LABS: BASOPHILS % (AUTO) 0.6 % (0-1); EOSINOPHILS % (AUTO) 0.7 % (0-6); HEMATOCRIT 37.2 % (35.0-45.0); HEMOGLOBIN 12.7 g/dl (12.0-16.0); LYMPHOCYTES # (AUTO) 2.3 X10'3 (1.1-4.8); LYMPHOCYTES % (AUTO) 41.2 % (21-51); MEAN CORPUSCULAR HEMOGLOBIN 31.2 PG (27.0-31.0); MEAN CORPUSCULAR HGB CONC 34.2 g/dL (33.0-36.5); MEAN CORPUSCULAR VOLUME 91.3 FL (78-98); MEAN PLATELET VOLUME 7.4 FL (7.4-10.4); MONOCYTES # (AUTO) 0.4 X10'3 (0-0.9); MONOCYTES % (AUTO) 7.3 % (2-12); NEUTROPHILS # (AUTO) 2.8 X10'3 (1.8-7.7); NEUTROPHILS % (AUTO) 50.2 % (42-75); PLATELET COUNT 239 X10'3 (140-440); RED BLOOD COUNT 4.08 X10'6 (4.20-5.60); RED CELL DISTRIBUTION WIDTH 13.4 % (11.5-14.5); WHITE BLOOD COUNT 5.5 X10'3 (4.5-11.0)
[2021-10-25 07:18] LABS: ALBUMIN 3.1 G/DL (3.4-5.0); ANION GAP 6 (8-16); BLOOD UREA NITROGEN 10 MG/DL (7-18); CALCIUM 8.4 MG/DL (8.5-10.1); CHLORIDE 110 MMOL/L (99-107); CREATININE 0.83 MG/DL (0.40-0.90); GLUCOSE 86 MG/DL (70-104); POTASSIUM 4.1 MMOL/L (3.5-5.1); SODIUM 145 MMOL/L (135-145); TOTAL CARBON DIOXIDE 28.9 MMOL/L (24-32); eGFR 65 ML/MIN
--- NOTE | 2021-10-25 07:56 | NUR ---
PAGER ID: [phone] MESSAGE: Smitha Ferrellchris [id number] Pt. SBP has been elevated. No home med list able to be retrieved however in past pt. on Lopressor. last bp 165/89. becka [id number]
[2021-10-25] MEDS: K and/or MAG REPLACEMENT MC SCH ×2 (08:00→20:00)
[2021-10-25] MEDS: cefTRIAXone 1g/NS 100ml IVPB 100 ML IV SCH (10:05)
[2021-10-25] MEDS: heparin, porcine 5000 units/ml vial SQ SCH ×2 (10:06→20:10)
[2021-10-25] MEDS ORDERED: hydrALAZINE 20mg/ml inj. IV PRN (16:10)
--- NOTE | 2021-10-25 18:59 | NUR ---
Gave report to Jim GRIFFITH.
[2021-10-26 02:00] VITALS: BP 162/57
[2021-10-26 06:49] LABS: BASOPHILS # (AUTO) 0.1 X10'3 (0-0.2); BASOPHILS % (AUTO) 1.1 % (0-1); EOSINOPHILS # (AUTO) 0.1 X10'3 (0-0.9); EOSINOPHILS % (AUTO) 1.1 % (0-6); HEMATOCRIT 37.5 % (35.0-45.0); HEMOGLOBIN 12.7 g/dl (12.0-16.0); LYMPHOCYTES % (AUTO) 42.3 % (21-51); MEAN CORPUSCULAR HEMOGLOBIN 31.3 PG (27.0-31.0); MEAN CORPUSCULAR HGB CONC 33.8 g/dL (33.0-36.5); MEAN CORPUSCULAR VOLUME 92.4 FL (78-98); MEAN PLATELET VOLUME 7.8 FL (7.4-10.4); MONOCYTES # (AUTO) 0.4 X10'3 (0-0.9); NEUTROPHILS # (AUTO) 2.2 X10'3 (1.8-7.7); NEUTROPHILS % (AUTO) 47.5 % (42-75); PLATELET COUNT 211 X10'3 (140-440); RED BLOOD COUNT 4.05 X10'6 (4.20-5.60); RED CELL DISTRIBUTION WIDTH 13.6 % (11.5-14.5); WHITE BLOOD COUNT 4.7 X10'3 (4.5-11.0)
[2021-10-26 07:11] LABS: ALBUMIN 2.9 G/DL (3.4-5.0); ANION GAP 5 (8-16); BLOOD UREA NITROGEN 10 MG/DL (7-18); BUN/CREATININE RATIO 11.5 (6.6-38.0); CALCIUM 8.4 MG/DL (8.5-10.1); CHLORIDE 111 MMOL/L (99-107); CREATININE 0.87 MG/DL (0.40-0.90); GLUCOSE 90 MG/DL (70-104); MAGNESIUM 1.9 MG/DL (1.5-2.4); POTASSIUM 3.9 MMOL/L (3.5-5.1); SODIUM 141 MMOL/L (135-145); TOTAL CARBON DIOXIDE 24.9 MMOL/L (24-32); eGFR 62 ML/MIN
[2021-10-26 08:00] VITALS: BP 149/84
[2021-10-26] MEDS: K and/or MAG REPLACEMENT MC SCH ×2 (08:00→19:58)
[2021-10-26] MEDS: cefTRIAXone 1g/NS 100ml IVPB 100 ML IV SCH (08:00)
[2021-10-26] MEDS: heparin, porcine 5000 units/ml vial SQ SCH ×2 (08:01→21:11)
[2021-10-26] MEDS: normal saline 1000ml 1,000 ML IV SCH ×2 (08:02→21:11)
[2021-10-26 11:00] VITALS: BP 149/84
[2021-10-26 15:00] VITALS: BP 154/79
[2021-10-26 22:00] VITALS: BP 150/87
[2021-10-27 06:00] VITALS: BP 164/81
[2021-10-27 06:34] LABS: BASOPHILS % (AUTO) 0.7 % (0-1); EOSINOPHILS % (AUTO) 0.8 % (0-6); HEMATOCRIT 36.6 % (35.0-45.0); HEMOGLOBIN 12.6 g/dl (12.0-16.0); LYMPHOCYTES # (AUTO) 1.9 X10'3 (1.1-4.8); LYMPHOCYTES % (AUTO) 34.8 % (21-51); MEAN CORPUSCULAR HEMOGLOBIN 31.3 PG (27.0-31.0); MEAN CORPUSCULAR HGB CONC 34.4 g/dL (33.0-36.5); MEAN PLATELET VOLUME 7.7 FL (7.4-10.4); MONOCYTES # (AUTO) 0.4 X10'3 (0-0.9); MONOCYTES % (AUTO) 8.1 % (2-12); NEUTROPHILS % (AUTO) 55.6 % (42-75); PLATELET COUNT 215 X10'3 (140-440); RED BLOOD COUNT 4.02 X10'6 (4.20-5.60); RED CELL DISTRIBUTION WIDTH 13.4 % (11.5-14.5); WHITE BLOOD COUNT 5.4 X10'3 (4.5-11.0)
[2021-10-27 06:37] LABS: ALBUMIN 3.1 G/DL (3.4-5.0); ANION GAP 7 (8-16); BLOOD UREA NITROGEN 9 MG/DL (7-18); BUN/CREATININE RATIO 12.3 (6.6-38.0); CALCIUM 8.7 MG/DL (8.5-10.1); CHLORIDE 108 MMOL/L (99-107); CREATININE 0.73 MG/DL (0.40-0.90); GLUCOSE 89 MG/DL (70-104); MAGNESIUM 1.9 MG/DL (1.5-2.4); POTASSIUM 3.6 MMOL/L (3.5-5.1); SODIUM 142 MMOL/L (135-145); TOTAL CARBON DIOXIDE 27.2 MMOL/L (24-32); eGFR 76 ML/MIN
--- NOTE | 2021-10-27 06:37 | NUR ---
Problems reprioritized. Patient report given, questions answered & plan of care reviewed with Arleen. Addendum: 10/27/21 at 0637 by Ramón Magana RN Amended: Links added.
[2021-10-27] MEDS: K and/or MAG REPLACEMENT MC SCH ×2 (08:00→20:05)
[2021-10-27] MEDS: cefTRIAXone 1g/NS 100ml IVPB 100 ML IV SCH (08:39)
[2021-10-27] MEDS: heparin, porcine 5000 units/ml vial SQ SCH ×2 (08:39→20:04)
[2021-10-27] MEDS: normal saline 1000ml 1,000 ML IV SCH ×2 (09:05→20:04)
--- NOTE | 2021-10-27 09:28 | NUR ---
Initial: Pt admit for acute delirium likely d/t underlying dementia and UTI per MD note. Pt currently on a heart healthy diet and eating well with mostly 75-100% PO intake with the exception of three meals since admit. Pt A/O x 1 and confused, receiving total assistance with meals per EMR. Recommend liberalizing to regular diet in view of geriatric age and no significant cardiac history, d/w RN. Noted at previous admit in April 2021 pt was placed on a pureed diet per ST recs. Per RN pt didn't eat breakfast this morning so unsure if pt having difficulties chewing or swallowing at this time. Recommend BSS with ST this admit to ensure appropriate texture modification, d/w RN. LBM 10/26. No nutrition intervention implemented at this time. Will continue to follow. Recommendations: 1) Liberalize to regular diet in view of geriatric age and no significant cardiac PMH; texture modification per ST pending BSS 2) Monitor need for ONS 3) Bowel care PRN 4) Scaled weight this admit; subsequent weekly scaled weights Addendum: 10/27/21 at [address] Amended: Links added.
[2021-10-27 11:00] VITALS: BP 168/72
[2021-10-27] MEDS ORDERED: AMOX1TAB15 PO (14:45)
--- NOTE | 2021-10-27 15:00 | NUR ---
Per CM, pt has everything she needs at home and has no needs. HH is being ordered and arranged by CM. confirms he has a rail washer and everything he needs at home. Lisa cargo ride to be arranged by CM.
[2021-10-27 15:08] VITALS: BP 132/67
--- NOTE | 2021-10-27 15:11 | NUR ---
Per Cm there are no available rides for this pt until 0930am tomorrow. She has notified MD Hussein. Pt. will DC in AM at 9am.
--- NOTE | 2021-10-27 15:55 | NUR ---
here in room with pt. He is aware she is going home in AM at 9. DIscharge paperwork reviewed with . States he will go p/u antibiotic for UTI at [facility]. Disscussed pos Addendum: 10/27/21 at 1600 by Arleen Farnsworth RN Possible ASE of medication. Discussed which meds to continue and what to stop. Pt. aware to monitor BP and HR at home and professes to know how. Discussed ADL care, UTI prevention, and skin break down prevention. Barrier cream and no rinse spray provider. states he has w/c, walker, and second time worker caregiver named Prasanna to help care for his . has had the opportunities to ask questions and has none at this time.
[2021-10-27 18:00] VITALS: BP 155/74
--- NOTE | 2021-10-27 18:33 | NUR ---
Gave report to Nayla GRIFFITH.
--- NOTE | 2021-10-27 18:40 | NUR ---
Patient in room PCU 3010I. I have received report from Arleen GRIFFITH and had the opportunity to ask questions and assume patient care.
[2021-10-27 22:10] VITALS: BP 183/84
[2021-10-28 02:00] VITALS: BP 148/68
[2021-10-28] MEDS: normal saline 1000ml 1,000 ML IV SCH (05:10)
--- NOTE | 2021-10-28 06:29 | NUR ---
Problems reprioritized. Patient report given, questions answered & plan of care reviewed with Ke RN
[2021-10-28 07:12] LABS: ANION GAP 8 (8-16); BLOOD UREA NITROGEN 6 MG/DL (7-18); BUN/CREATININE RATIO 8.5 (6.6-38.0); CALCIUM 8.3 MG/DL (8.5-10.1); CHLORIDE 110 MMOL/L (99-107); CREATININE 0.71 MG/DL (0.40-0.90); GLUCOSE 92 MG/DL (70-104); MAGNESIUM 1.7 MG/DL (1.5-2.4); POTASSIUM 3.1 MMOL/L (3.5-5.1); SODIUM 144 MMOL/L (135-145); TOTAL CARBON DIOXIDE 26.5 MMOL/L (24-32); eGFR 78 ML/MIN
[2021-10-28 07:17] LABS: BASOPHILS % (AUTO) 0.7 % (0-1); EOSINOPHILS # (AUTO) 0.1 X10'3 (0-0.9); EOSINOPHILS % (AUTO) 1.1 % (0-6); HEMATOCRIT 35.9 % (35.0-45.0); HEMOGLOBIN 12.1 g/dl (12.0-16.0); LYMPHOCYTES # (AUTO) 1.8 X10'3 (1.1-4.8); LYMPHOCYTES % (AUTO) 36.4 % (21-51); MEAN CORPUSCULAR HEMOGLOBIN 30.6 PG (27.0-31.0); MEAN CORPUSCULAR HGB CONC 33.7 g/dL (33.0-36.5); MEAN CORPUSCULAR VOLUME 90.7 FL (78-98); MEAN PLATELET VOLUME 7.7 FL (7.4-10.4); MONOCYTES # (AUTO) 0.4 X10'3 (0-0.9); MONOCYTES % (AUTO) 8.7 % (2-12); NEUTROPHILS # (AUTO) 2.6 X10'3 (1.8-7.7); NEUTROPHILS % (AUTO) 53.1 % (42-75); PLATELET COUNT 227 X10'3 (140-440); RED BLOOD COUNT 3.95 X10'6 (4.20-5.60); RED CELL DISTRIBUTION WIDTH 13.5 % (11.5-14.5); WHITE BLOOD COUNT 4.9 X10'3 (4.5-11.0)
[2021-10-28] MEDS: K and/or MAG REPLACEMENT MC SCH (08:00)
[2021-10-28] MEDS: cefTRIAXone 1g/NS 100ml IVPB 100 ML IV SCH (08:45)
[2021-10-28] MEDS: heparin, porcine 5000 units/ml vial SQ SCH (08:45)
[2021-11-03] MEDS ORDERED: LOSA50TA64 PO (15:44)
== END 2021-10-28 10:04 | disposition home health service (06) | DRG 689 ==
LOC: ER 05:09 → ED HOLD 11:08 → PCU 3S 14:27
PROVIDERS: ADMIT Internal Medicine; ATTEND Internal Medicine
DX: N39.0 Urinary tract infection, site not specified (principal); G93.41 Metabolic encephalopathy; F03.91 Unspecified dementia, unspecified severity, with behavioral disturbance; F05 Delirium due to known physiological condition; R44.3 Hallucinations, unspecified; I10 Essential (primary) hypertension; Z86.73 Personal history of transient ischemic attack (TIA), and cerebral infarction without residual deficits; Z79.899 Other long term (current) drug therapy; Z90.49 Acquired absence of other specified parts of digestive tract; Z90.710 Acquired absence of both cervix and uterus; Z99.3 Dependence on wheelchair
CPT/HCPCS: 36415; 70450; 71045; 80048; 80053; 81001; 82140; 83605; 83735; 83880; 84132; 84145; 84484; 85025; 87081; 87088; 92508; 92616; 93005; 97162; 97530; 97535; 99285; G0378; J0360; J0696; J1644; J7030